=== PATIENT | male | born 1955 | race Caucasian/White ===

== ENCOUNTER 2018-11-25 16:19 | Observation (INO) ==
[2018-11-25 17:05] LABS: Basophils % 0.2 %; Hematocrit 39.8 % (37.5-50.1); Hemoglobin 13.8 g/dL (12.9-16.9); Immature Granulocytes % 0.7 % (0-4); Lymphocytes # 1.2 K/mcL (0.6-4.6); Lymphocytes % 9.5 %; Mean Corpuscular HGB Conc 34.7 g/dL (31.6-35.5); Mean Corpuscular Hemoglobin 32.9 pg (28.0-33.3); Monocytes # 0.6 K/mcL (0.0-1.3); Monocytes % 4.4 %; Platelet Count 246 K/mcL (140-400); Red Blood Count 4.19 M/mcL (4.19-5.50); Red Cell Distribution Width 12.4 % (11.5-14.5); Segmented Neutrophils % 85.2 %; White Blood Count 12.9 K/mcL (4.3-11.1)
[2018-11-25 17:12] LABS: INR 0.9; Prothrombin Time 10.4 Seconds (9.4-12.1)
[2018-11-25 17:15] LABS: Activated Partial Thrombo Time 30.4 Seconds (26.0-36.0)
[2018-11-25 17:27] LABS: BUN/Creatinine Ratio 29 (6-26); Blood Urea Nitrogen 27 mg/dL (8-23); Calcium 9.5 mg/dL (8.6-10.3); Carbon Dioxide 25 mEq/L (23-29); Chloride 103 mEq/L (98-107); Glucose 296 mg/dL (70-105); Osmolality,Calculated 300 (280-300); Potassium 4.2 mEq/L (3.5-5.1); Sodium 137 mEq/L (136-145); eGFR For African Americans > 60 (> 60); eGFR For Non-African Americans > 60 (> 60)
[2018-11-25 17:28] LABS: Troponin I < 0.03 ng/mL (< 0.04)
--- NOTE | 2018-11-25 17:51 | Emergency Department Note ---
Disposition Clinical Impression: Chest pain Disposition: Admitted As Inpatient Condition: Fair Referrals: Deepa Pastrana MD [Primary Care Provider] - Forms: ED Satisfaction Letter Time of Disposition: 18:19 Chest Pain HPI - General Chief Complaint: ED Chest Pain Stated Complaint: Chest Pain Time Seen by Provider: 11/25/18 16:37 Source: patient Vital Signs Reviewed: Yes Nursing Notes Reviewed: Yes - History of Present Illness HPI Narrative: Patient is a 63-year-old male with history of coronary artery disease with one stent placed in 1999 who presents with concerns of chest pain and shortness of breath. Patient states that these symptoms have been going on over the past 2 weeks. He said initially the chest pain which he describes as midsternal, sharp and stabbing in nature without radiation, would come on with ambulation and exertion and then resolve at rest. However, he states over the past 2 days it has now begun while at rest. He denies any associated fevers or chills, shortness of breath, nausea, vomiting, diaphoresis or other systemic symptoms. Severity scale (1-10): 2 - Related Data Home Medications Medication Instructions Recorded Confirmed Allopurinol [Zyloprim 100 MG] 100 mg PO DAILY PRN 12/09/16 12/09/16 Alogliptin Benzoate [Alogliptin] 2 tab PO DAILY 12/09/16 12/09/16 Aspirin [Lo-Dose Aspirin EC] 81 mg PO DAILY 12/09/16 12/09/16 Atenolol [Tenormin] 50 mg PO DAILY 12/09/16 12/09/16 Famotidine [Pepcid] 20 mg PO DAILY PRN 12/09/16 12/09/16 Hydroxychloroquine [Plaquenuil] 200 mg PO DAILY 12/09/16 12/09/16 Ibuprofen [Motrin] 800 mg PO Q8HR PRN 12/09/16 12/09/16 Lisinopril-HCTZ 20-12.5 [Prinzide 1 tab PO BID 12/09/16 12/09/16 20-12.5] Metformin HCl [Glucophage] 1,000 mg PO BID 12/09/16 12/09/16 Multivitamin [Multivitamins] 1 each PO DAILY 12/09/16 12/09/16 PredniSONE [Deltasone] 20 mg PO DAILY PRN 12/09/16 12/09/16 Previous Rx's Medication Instructions Recorded Isosorbide MONOnitrate (24 HR) 30 mg PO DAILY #30 tab.er.24h 12/09/16 [Imdur] Cyclobenzaprine [Flexeril] 10 mg PO HS #15 tablet 08/25/17 Allergies Allergy/AdvReac Type Severity Reaction Status Date / Time No Known Allergies Allergy Verified 06/17/16 09:30 Review of Systems: REVIEW OF SYSTEMS: Constitutional: No F/C, No excessive fatigue Eye: No acute visual changes HENT: No sore throat, No rhinorrhea Resp: No SOB, No cough Cardio: Admits to chest pain, No palpitations GI: No abdominal pain, No nausea, No vomiting, No constipation, No diarrhea, No melena or hematochezia : No dysuria, No hematuria Musculoskeletal: No new joint swelling, No back pain Neuro: No isolated numbness or weakness, No headaches Skin: No skin yellowing/jaundice, No pruritus Chest Pain PMH - Past Medical History Medical history: Reports: arthritis, diabetes, hyperlipidemia, hypertension, other Surgical history: Reports: angioplasty/stent, other Psychiatric history: Reports: no psych history - Social History Smoking Status: Current every day smoker Alcohol use: Reports: none Drug use: Reports: none Physical Exam PHYSICAL EXAM: Constitutional: Stated Age HENT: NC/AT, Mucous membranes moist Eyes: No scleral icterus, No photophobia, EOMI Neck: No nuchal rigidity, Supple, Trachea midline Cardiac: Regular rate and rhythm, S1 and S2 normal, no S3, S4, no murmurs gallops or rubs Thorax & Lungs: Clear to auscultation bilaterally, no wheezes, crackles or rhonchi, No chest tenderness Abdomen: Soft, non-tender, non-distended, no rebound or guarding Skin: Warm, dry, pink, No mottling Extremities: No deformities Musculoskeletal: Normal tone Neurologic: sensory and motor strength fully intact in all extremities, no aphasia or dysarthria Psychiatric: appropriately oriented for baseline - General General appearance: alert, in distress, obese Course Vital Signs Temperature 98.6 F 11/25/18 16:31 Pulse Rate 103 11/25/18 16:31 Respiratory Rate 20 11/25/18 16:31 Blood Pressure 164/79 11/25/18 16:31 O2 Sat by Pulse Oximetry 95 09/11/19 16:31 Temperature 98.6 F 11/25/18 16:31 Pulse Rate 103 11/25/18 16:31 Respiratory Rate 20 11/25/18 16:31 Blood Pressure 164/79 11/25/18 16:31 O2 Sat by Pulse Oximetry 95 11/25/18 16:31 Oxygen Delivery Oxygen Delivery Room Air Chest Pain - MDM Narrative Medical decision making narrative: Patient is a 63-year-old male with known coronary artery disease who presents with concerns of increasing chest pain over the past 2 weeks, primarily with past 2 days. He describes symptoms consistent with unstable angina. On exam, he was resting currently in no acute distress. Heart sounds regular lung sounds clear bilaterally. He is afebrile. Work up that is performed today, including chest x-ray, EKG as well as remaining labs are all felt to be fairly unremarkable. However, due to the patient's known coronary artery disease along with symptoms concerning for unstable angina, and if he wants hospitalization. He did have aspirin prior to arrival. The hospitalist was contacted regarding hospitalization. - Medical Records Medical records reviewed: Yes I reviewed the patient's medical records. - Lab Data Lab results reviewed: Yes I reviewed the patient's lab results. Result diagrams: 11/25/18 16:45 11/25/18 16:45 Lab Results 11/25/18 11/25/18 11/25/18 Range/Units 16:45 16:45 16:45 WBC 12.9 H (4.3-11.1) K/mcL RBC 4.19 (4.19-5.50) M/mcL Hgb 13.8 (12.9-16.9) g/dL Hct 39.8 (37.5-50.1) % MCV 95.0 (83.0-100.0) fL MCH 32.9 (28.0-33.3) pg MCHC 34.7 (31.6-35.5) g/dL RDW 12.4 (11.5-14.5) % Plt Count 246 (140-400) K/mcL MPV 10.0 (9.4-12.4) fL Immature Gran % 0.7 (0-4) % Seg Neutrophils % 85.2 % Lymphocytes % 9.5 % Monocytes % 4.4 % Eosinophils % 0.0 % Basophils % 0.2 % Neutrophils # 11.0 H (1.6-8.9) K/mcL Lymphocytes # 1.2 (0.6-4.6) K/mcL Monocytes # 0.6 (0.0-1.3) K/mcL Eosinophils # 0.0 (0.0-0.6) K/mcL Basophils # 0.0 (0.0-0.2) K/mcL PT 10.4 (9.4-12.1) Seconds INR 0.9 APTT 30.4 (26.0-36.0) Seconds Sodium (136-145) mEq/L Potassium (3.5-5.1) mEq/L Chloride (98-107) mEq/L Carbon Dioxide (23-29) mEq/L BUN (8-23) mg/dL Creatinine (0.70-1.30) mg/dL Est GFR ( Amer) (> 60) Est GFR (Non-Af Amer) (> 60) BUN/Creatinine Ratio (6-26) Glucose (70-105) mg/dL Calculated Osmolality (280-300) Calcium (8.6-10.3) mg/dL Troponin I (< 0.04) ng/mL B-Natriuretic Peptide 43 (Less than 100) pg/mL 11/25/18 Range/Units 16:45 WBC (4.3-11.1) K/mcL RBC (4.19-5.50) M/mcL Hgb (12.9-16.9) g/dL Hct (37.5-50.1) % MCV (83.0-100.0) fL MCH (28.0-33.3) pg MCHC (31.6-35.5) g/dL RDW (11.5-14.5) % Plt Count (140-400) K/mcL MPV (9.4-12.4) fL Immature Gran % (0-4) % Seg Neutrophils % % Lymphocytes % % Monocytes % % Eosinophils % % Basophils % % Neutrophils # (1.6-8.9) K/mcL Lymphocytes # (0.6-4.6) K/mcL Monocytes # (0.0-1.3) K/mcL Eosinophils # (0.0-0.6) K/mcL Basophils # (0.0-0.2) K/mcL PT (9.4-12.1) Seconds INR APTT (26.0-36.0) Seconds Sodium 137 (136-145) mEq/L Potassium 4.2 (3.5-5.1) mEq/L Chloride 103 (98-107) mEq/L Carbon Dioxide 25 (23-29) mEq/L BUN 27 H (8-23) mg/dL Creatinine 0.94 (0.70-1.30) mg/dL Est GFR ( Amer) > 60 (> 60) Est GFR (Non-Af Amer) > 60 (> 60) BUN/Creatinine Ratio 29 H (6-26) Glucose 296 H (70-105) mg/dL Calculated Osmolality 300 (280-300) Calcium 9.5 (8.6-10.3) mg/dL Troponin I < 0.03 (< 0.04) ng/mL B-Natriuretic Peptide (Less than 100) pg/mL - Radiology Data Radiology results reviewed: Yes I reviewed the patient's radiology results. - EKG Data EKG attestation: Yes I reviewed and interpreted this EKG. EKG shows normal: sinus rhythm Rate: normal Rhythm: NSR [place]/QRS: normal
[2018-11-25] MEDS ORDERED: Naloxone 0.4 MG/ML INJ IVP PRN (18:24)
[2018-11-25] MEDS ORDERED: Ondansetron 4 MG/2 ML VIAL IVP PRN (18:24)
--- NOTE | 2018-11-25 18:29 | Internal Med History&Physical ---
Date of Encounter: 11/25/18 Time of Encounter: 18:27 Internal Medicine - H&P: HPI Chief complaint: Chest pain Admitted From: Home Plans for Post Hospital Care: Home History of present illness: Mr. Mendoza is a 63 year old male with past medical history of CAD status post stent placed in 1999, CHF diastolic, hypertension, hyperlipidemia, GERD, and morbid obesity presents to the emergency room with complaint of chest pain for last 2 weeks. Patient reports his pain is substernal, episodic, 8/10 in severity at occurance, pressure like in quality radiates to right side of sternum, aggravated by exertion and relieved by rest. The patient also reports associated diaphoresis, sweating and SOB. Patient reports that all this started 2 months ago when his medication was switched from atenolol to metoprolol by his graphic manager Dr. Seo. Patient reports last 2 weeks frequency of his symptoms has worsened. However, in the last 2 days he started having symptoms at rest. Apart from this, he denies fever, chills, nausea and vomiting. Initial workup in the emergency department was unremarkable of any ischemia in EKG and troponine was negative. BNP was 42. CXR negative for any acute cardiopulmonary process. Reports that he has appointment with his graphic manager Dr. Seo coming Friday. Patient had echocardiogram on 11/11/18 showed ejection fraction 55-60%.. Mild concentric LVH and Mild diastolic dysfunction. Past Med Surg Social Fam HX - Past Medical History Medical history: arthritis, diabetes, hyperlipidemia, hypertension, other Additional medical history: gout. PCI x1 in 2000 Psychiatric history: no psych history - Past Surgical History Surgical History: angioplasty/stent, other Additional surgical history: heart stents. BILAT HERNIA. RIGHT SHOULDER - Social History Smoking Status: Current every day smoker Smokeless Tobacco Status: No Alcohol use: none Drug use: none - Family History Mother Hx Family Endocrine Disorder: Yes (DM) Brother Hx Family Endocrine Disorder: Yes (DM) Internal Medicine - H&P: Meds Allopurinol [Zyloprim 100 MG] 100 mg PO DAILY PRN 12/09/16 [History] Alogliptin Benzoate [Alogliptin] 2 tab PO DAILY 12/09/16 [History] Aspirin [Lo-Dose Aspirin EC] 81 mg PO DAILY 12/09/16 [History] Atenolol [Tenormin] 50 mg PO DAILY 12/09/16 [History] Famotidine [Pepcid] 20 mg PO DAILY PRN 12/09/16 [History] Hydroxychloroquine [Plaquenuil] 200 mg PO DAILY 12/09/16 [History] Ibuprofen [Motrin] 800 mg PO Q8HR PRN 12/09/16 [History] Isosorbide MONOnitrate (24 HR) [Imdur] 30 mg PO DAILY #30 tab.er.24h 12/09/16 [Rx] Lisinopril-HCTZ 20-12.5 [Prinzide 20-12.5] 1 tab PO BID 12/09/16 [History] Metformin HCl [Glucophage] 1,000 mg PO BID 12/09/16 [History] Multivitamin [Multivitamins] 1 each PO DAILY 12/09/16 [History] PredniSONE [Deltasone] 20 mg PO DAILY PRN 12/09/16 [History] Cyclobenzaprine [Flexeril] 10 mg PO HS #15 tablet 08/25/17 [Rx] Allergy/AdvReac Type Severity Reaction Status Date / Time No Known Allergies Allergy Verified 06/17/16 09:30 All Systems PM: A 10-system review of systems was performed and is negative for pertinent findings except as documented above in the HPI. - Constitutional Vitals: Temp Pulse Resp BP Pulse Ox 98.6 F 103 20 164/79 95 11/25/18 16:31 11/25/18 16:31 11/25/18 16:31 11/25/18 16:31 11/25/18 16:31 General appearance: Present: cooperative, A&O X 3 Exam: General: A & O 3, In no acute distress HENNT: PERRLA. Head atraumatic and makes supple Eyes: No scleral icterus noted CVS S1 and S2 regular, no murmur RS: Clear to air entry bilaterally, no wheeze, no crackles Abdomen: Soft and nontender. Bowel sounds normal 4 Extremities: Trace to 1+ pitting edema bilaterally Neurology: Cranial II-XII normal. Motor strength 5/5 bilaterally. Sensation intact Skin: No rash noted Psychiatr: Alert and oriented X 3. Normal mmod with congruent affect Internal Med - H&P Results - Labs CBC & Chem 7: 11/25/18 16:45 11/25/18 16:45 Labs: Short CBC 11/25/18 Range/Units 16:45 WBC 12.9 H (4.3-11.1) K/mcL Hgb 13.8 (12.9-16.9) g/dL Hct 39.8 (37.5-50.1) % Plt Count 246 (140-400) K/mcL Neutrophils # 11.0 H (1.6-8.9) K/mcL BMP 11/25/18 16:45 Sodium 137 Potassium 4.2 Chloride 103 Carbon Dioxide 25 BUN 27 H Creatinine 0.94 Glucose 296 H Calcium 9.5 Cardiac Enzymes 11/25/18 Range/Units 16:45 Troponin I < 0.03 (< 0.04) ng/mL - Impressions ITS Impressions Chest X-Ray 11/25/18 16:37 IMPRESSION: No acute cardiopulmonary disease or significant interval change from prior study 06/02/2012. D/ / Arsenio Velazquez / Arsenio Velazquez Interpreting Provider: Arsenio Velazquez - Assessment and Plan (1) Unstable angina pectoris due to coronary arteriosclerosis Current Visit: Yes Status: Acute Assessment and plan: The patient presents with complaint of 2 weeks off episode of chest pain on exertion. Patient's pain is substernal, pressure-like, and releived by rest. Teaching the emergency room showed sinus tachycardia at 106 which went up. EKG was negative for any ischemic changes. Trop X1 was negative. BNP 42. CXR was negative. Will admit patient for unstable angina. - Telemetry - Cardiac diet - NPO after midnight - Lipid panel in AM - Echocardiogram - Heparin gtt - Morphine for pain control - NTG 0.4 mg SL PRN - Trend troponine - Cardiology on consult (2) DM2 (diabetes mellitus, type 2) Current Visit: Yes Status: Chronic Assessment and plan: We will start patient on sliding scale corrective insulin regimen at low-dose. Qualifiers: Diabetes mellitus salvage determiner insulin use: without nursing home use Diabetes mellitus complication status: without complication Qualified Code(s): E11.9 - Type 2 diabetes mellitus without complications (3) CHF (congestive heart failure) Current Visit: Yes Status: Chronic Assessment and plan: We will continue aspirin, , statin and home medication. Pt is not currently volume overloaded. Qualifiers: Heart failure type: diastolic Heart failure chronicity: chronic Qualified Code(s): I50.32 - Chronic diastolic (congestive) heart failure (4) HTN (hypertension) Current Visit: Yes Status: Acute Assessment and plan: Continue lisinopril and hydrochlorothiazide. Will hold Metoprolol Qualifiers: Hypertension type: essential hypertension Qualified Code(s): I10 - Essential (primary) hypertension (5) HLD (hyperlipidemia) Current Visit: Yes Status: Acute Assessment and plan: Statin Qualifiers: Hyperlipidemia type: unspecified Qualified Code(s): E78.5 - Hyperlipidemia, unspecified (6) DVT prophylaxis Current Visit: Yes Status: Acute Assessment and plan: Heparin drip - Time Spent With Patient Total time spent is greater than 50% in coordination of care (as documented) at patient's floor/unit and/or counseling patient: 25 - 35 minutes
[2018-11-25] MEDS ORDERED: *HR* Heparin 5,000 UNIT/ML VIAL IVP PRN (18:48)
[2018-11-25] MEDS ORDERED: *HR* Heparin 5,000 UNIT/ML VIAL IVP ONE (18:48)
[2018-11-25] MEDS ORDERED: Morphine Sulfate 2 MG/ML SYRINGE IVP PRN (18:51)
[2018-11-25] MEDS ORDERED: Nitroglycerin 0.4 MG TAB.SUBL SL PRN (18:52)
[2018-11-25] MEDS ORDERED: Heparin 25,000 UNIT/250 ML D5W 25,000 UNIT/250 ML IV.SOLN IVC SCH (19:00)
[2018-11-25] MEDS: Lisinopril-HCTZ 20-12.5mg TABLET PO SCH (20:43)
[2018-11-25] MEDS: Famotidine 20 MG TABLET PO SCH (20:43)
[2018-11-25] MEDS ORDERED: *HR* Dextrose 50 % in Water (Syg) 50 ML SYRINGE IVP PRN (21:25)
[2018-11-25] MEDS ORDERED: Dextrose Gel 15 GM/37.5 ML TUBE PO PRN ×2 (21:25)
[2018-11-25] MEDS ORDERED: D5% in Water 1,000 ML IVC PRN (21:25)
[2018-11-25 22:01] LABS: Hematocrit 41.4 % (37.5-50.1); Hemoglobin 14.1 g/dL (12.9-16.9); Mean Corpuscular HGB Conc 34.1 g/dL (31.6-35.5); Mean Corpuscular Hemoglobin 32.6 pg (28.0-33.3); Mean Corpuscular Volume 95.6 fL (83.0-100.0); Platelet Count 266 K/mcL (140-400); Red Blood Count 4.33 M/mcL (4.19-5.50); Red Cell Distribution Width 12.3 % (11.5-14.5); White Blood Count 14.1 K/mcL (4.3-11.1)
[2018-11-25] MEDS: Insulin LISPRO 300 UNITS/3 ML VIAL SQ SCH (22:01)
[2018-11-25 22:08] LABS: Heparin anti-factor XA UFH 0.47 IU/mL (0.30-0.70)
[2018-11-25 22:09] LABS: Prothrombin Time 10.9 Seconds (9.4-12.1)
[2018-11-26 01:40] LABS: Basophils % 0.2 %; Eosinophils # 0.1 K/mcL (0.0-0.6); Eosinophils % 0.4 %; Hematocrit 39.4 % (37.5-50.1); Hemoglobin 13.4 g/dL (12.9-16.9); Immature Granulocytes % 0.5 % (0-4); Lymphocytes # 3.3 K/mcL (0.6-4.6); Mean Corpuscular Hemoglobin 32.5 pg (28.0-33.3); Mean Corpuscular Volume 95.6 fL (83.0-100.0); Mean Platelet Volume 10.3 fL (9.4-12.4); Monocytes % 7.6 %; Neutrophils # 8.8 K/mcL (1.6-8.9); Platelet Count 245 K/mcL (140-400); Red Blood Count 4.12 M/mcL (4.19-5.50); Red Cell Distribution Width 12.3 % (11.5-14.5); Segmented Neutrophils % 66.3 %; White Blood Count 13.3 K/mcL (4.3-11.1)
[2018-11-26 01:59] LABS: BUN/Creatinine Ratio 27 (6-26); Blood Urea Nitrogen 24 mg/dL (8-23); Calcium 9.4 mg/dL (8.6-10.3); Carbon Dioxide 27 mEq/L (23-29); Chloride 104 mEq/L (98-107); Chol/HDL Ratio 2.6 (0-4.9); Cholesterol 99 mg/dL (< 200); Glucose 180 mg/dL (70-105); HDL Cholesterol 38 mg/dL (40-59); LDL Cholesterol,Calculated 31 mg/dL (0-99); Magnesium 1.5 mg/dL (1.6-2.6); Osmolality,Calculated 299 (280-300); Phosphorous 3.6 mg/dL (2.7-4.5); Potassium 3.8 mEq/L (3.5-5.1); Sodium 140 mEq/L (136-145); Triglycerides 150 mg/dL (< 150); eGFR For African Americans > 60 (> 60); eGFR For Non-African Americans > 60 (> 60)
[2018-11-26] MEDS: *HR* Heparin 5,000 UNIT/ML VIAL IVP PRN ×2 (03:23→09:55)
[2018-11-26] MEDS ORDERED: Aspirin 81 MG TAB.CHEW PO SCH (09:00)
[2018-11-26] MEDS: Insulin LISPRO 300 UNITS/3 ML VIAL SQ SCH ×3 (09:18→17:40)
[2018-11-26] MEDS: Famotidine 20 MG TABLET PO SCH (11:31)
[2018-11-26] MEDS: Lisinopril-HCTZ 20-12.5mg TABLET PO SCH (11:31)
--- NOTE | 2018-11-26 11:43 | Cardiology Consult Note ---
<Mike Jerry R - Last Filed: 11/26/18 11:40> Date of Encounter: 11/26/18 Time of Encounter: 11:40 Assessment and Plan (1) Unstable angina pectoris due to coronary arteriosclerosis Current Visit: Yes Status: Acute Presented with worsening chest pain over recent months/weeks. Initial exertional, now occurring at rest, concerning for unstable angina. Troponin negative x 3. No ischemic ECG changes. On heparin gtt. [facility] 12/09/16: Unable to obtain RCA imaging via radial access, utilized ultrasound for right femoral access. There is moderate two vessel disease (LAD & Circumflex) with occluded nondominant RCA. The left ventricle is normal and has normal contractility EF 65%. FFR Measurement: 0.96 proximal LAD & 0.91 Mid Circumflex. TTE 10/2018 EF preserved. Started on Imdur as outpt in recent months, did not tolerate d/t headaches. Given symptoms and failed medical therapy, recommend [facility] to further evaluate. R/B/A discussed. Pt agrees to proceed. (2) CAD (coronary artery disease) Current Visit: Yes Status: Acute As above. Continue ASA, Statin, BB. Qualifiers: Coronary Disease-Associated Artery/Lesion type: [place] artery [place] vs. transplanted heart: [place] heart Associated angina: with unstable angina Qualified Code(s): I25.110 - Atherosclerotic heart disease of [place] coronary artery with unstable angina pectoris Discussion w patient/family: The assessment and plan as outlined above was discussed with the patient and/or family members who expressed understanding and agreement. All questions were answered. Thank you for involving us in the care of your patient. Please call with any questions. I will discuss all the above with Dr. Bush and make changes as necessary. History of Present Illness Consult date: 11/26/18 Consult reason: chest pain Chief complaint: chest pain History of present illness: Mr. Mendoza is a 63 year old male with PMH of CAD status post stent placed in 1999, CHF diastolic, hypertension, hyperlipidemia, GERD, and morbid obesity presents to the emergency room with complaint of chest pain for last 2 weeks. Patient reports his pain is substernal, episodic, 8/10 in severity at occurance, pressure like in quality radiates to right side of sternum, aggravated by ex ertion and relieved by rest. The patient also reports associated diaphoresis, sweating and SOB. Patient reports that all this started 2 months ago when his medication was switched from atenolol to metoprolol by his auto heater mechanic Dr. Seo. Patient reports last 2 weeks frequency of his symptoms has worsened. However, in the last 2 days he started having symptoms at rest. Apart from this, he denies fever, chills, nausea and vomiting. Troponin negative x 3. Cardiology consulted for further recs. Prior CV testing: [facility] 12/09/16: Unable to obtain RCA imaging via radial access, utilized ultrasound for right femoral access. There is moderate two vessel disease (LAD & Circumflex) with occluded nondominant RCA. The left ventricle is normal and has normal contractility EF 65%. FFR Measurement: 0.96 proximal LAD & 0.91 Mid Circumflex. TTE 11/11/18: LVEF 55-60%. Normal LV chamber size and function. Mild left ventricular diastolic dysfunction. Mild concentric left ventricular hypertrophy. Grossly, the right ventricle appears mildly dilated. Function is normal. Unable to estimate RVSP due to lack of TR jet. No obvious significant valvular dysfunction. Past Med Surg Social Fam HX - Past Medical History Medical history: arthritis, diabetes, hyperlipidemia, hypertension, other Additional medical history: gout. PCI x1 in 2000 Psychiatric history: no psych history - Past Surgical History Surgical History: angioplasty/stent, other Additional surgical history: heart stents. BILAT HERNIA. RIGHT SHOULDER - Social History Smoking Status: Current every day smoker Smokeless Tobacco Status: No Alcohol use: none Drug use: none - Family History Mother Hx Family Endocrine Disorder: Yes (DM) Brother Hx Family Endocrine Disorder: Yes (DM) Medications and Allergies Allopurinol [Zyloprim 100 MG] 100 mg PO BID PRN 12/09/16 [History] Alogliptin Benzoate [Alogliptin] 25 mg PO DAILY 12/09/16 [History] Aspirin [Lo-Dose Aspirin EC] 81 mg PO DAILY 12/09/16 [History] Famotidine [Pepcid] 20 mg PO DAILY PRN 12/09/16 [History] Ibuprofen [Motrin] 800 mg PO Q8HR PRN 12/09/16 [History] Lisinopril-HCTZ 20-12.5 [Prinzide 20-12.5] 1 tab PO BID 12/09/16 [History] Metformin HCl [Glucophage] 1,000 mg PO BID 12/09/16 [History] Multivitamin [Multivitamins] 1 each PO DAILY 12/09/16 [History] Atorvastatin [Lipitor] 80 mg PO HS 11/25/18 [History] Glimepiride [Amaryl] 2 mg PO DAILY 11/25/18 [History] predniSONE [PredniSONE] 40 mg PO DAILY MDD 10 11/25/18 [History] Allergy/AdvReac Type Severity Reaction Status Date / Time No Known Allergies Allergy Verified 06/17/16 09:30 All Systems Review: The remainder of the systems were reviewed and are negative - Cardiovascular Cardiovascular: as per HPI, chest pain at rest, chest pain with exertion, dyspnea on exertion Physical Examination Vital Signs Temp Pulse Resp BP Pulse Ox 11/26/18 07:35 97.5 F L 86 16 151/82 93 11/26/18 02:53 97.7 F 73 18 151/88 94 11/25/18 23:47 97.9 F 88 17 133/66 95 11/25/18 20:19 97.6 F 102 18 155/76 95 11/25/18 19:02 98 27 130/69 94 11/25/18 16:31 98.6 F 103 20 164/79 95 Intake and Output 11/25/18 11/26/18 11/26/18 23:59 07:59 15:59 Intake Total 50 / 50 60 / 150 90 / 150 Balance 50 / 50 60 / 150 90 / 150 Intake: IV Fluids 60 / 150 90 / 150 Heparin 25,000 UNIT/250 ML D5W 60 / 150 90 / 150 25,000 unit In 250 ml @ 7.33 UNIT/KG/HR 10.008 mls/hr IVC . Q24H HARLAN Rx#:[id number] Oral 50 / 50 Other: # Voids 1 Weight 136.248 kg 136.248 kg Blood Glucose* 194 163 Patient Weight 11/26/18 23:59 Weight 136.248 kg General: Conversant, No Apparent Distress HEENT: Atraumatic, Normocephaly, Mucus Membranes Moist Neck: No JVD, Normal carotid pulses Cardiac: Reg Rate and Rhythm, Normal S1 and S2, No Murmur Lungs: Normal Breath Sounds, No Wheeze, Rales, Rhonchi Neuro: Alert and responsive, No focal deficits noted Abdomen: Soft, Non-Tender Skin: No rashes noted on visualized skin Musculoskeletal: No Chest Wall Tenderness Extremities: No Clubbing, No Cyanosis, No Edema, Normal Pulses Results 11/26/18 00:33 11/26/18 00:33 Lab Results 11/25/18 11/25/18 11/25/18 16:45 16:45 16:45 WBC 12.9 H Hgb 13.8 Hct 39.8 Plt Count 246 INR 0.9 APTT 30.4 Sodium Potassium Chloride Carbon Dioxide BUN Creatinine Glucose Calcium Magnesium Troponin I B-Natriuretic Peptide 43 11/25/18 11/25/18 11/25/18 16:45 21:32 21:32 WBC 14.1 H Hgb 14.1 Hct 41.4 Plt Count 266 INR APTT Sodium 137 Potassium 4.2 Chloride 103 Carbon Dioxide 25 BUN 27 H Creatinine 0.94 Glucose 296 H Calcium 9.5 Magnesium Troponin I < 0.03 < 0.03 B-Natriuretic Peptide 11/25/18 11/26/18 11/26/18 21:32 00:33 00:33 WBC 13.3 H Hgb 13.4 Hct 39.4 Plt Count 245 INR 1.0 APTT Sodium Potassium Chloride Carbon Dioxide BUN Creatinine Glucose Calcium Magnesium Troponin I < 0.03 B-Natriuretic Peptide 11/26/18 11/26/18 00:33 06:34 WBC Hgb Hct Plt Count INR APTT Sodium 140 Potassium 3.8 Chloride 104 Carbon Dioxide 27 BUN 24 H Creatinine 0.88 Glucose 180 H Calcium 9.4 Magnesium 1.5 L Troponin I 0.03 B-Natriuretic Peptide Short CBC 11/26/18 11/25/18 11/25/18 Range/Units 00:33 21:32 16:45 WBC 13.3 H 14.1 H 12.9 H (4.3-11.1) K/mcL Hgb 13.4 14.1 13.8 (12.9-16.9) g/dL Hct 39.4 41.4 39.8 (37.5-50.1) % Plt Count 245 266 246 (140-400) K/mcL Neutrophils # 8.8 11.0 H (1.6-8.9) K/mcL BMP 11/26/18 11/25/18 Range/Units 00:33 16:45 Sodium 140 137 (136-145) mEq/L Potassium 3.8 4.2 (3.5-5.1) mEq/L Chloride 104 103 (98-107) mEq/L Carbon Dioxide 27 25 (23-29) mEq/L BUN 24 H 27 H (8-23) mg/dL Creatinine 0.88 0.94 (0.70-1.30) mg/dL Glucose 180 H 296 H (70-105) mg/dL Calcium 9.4 9.5 (8.6-10.3) mg/dL Cardiac Enzymes 11/26/18 11/26/18 11/25/18 Range/Units 06:34 00:33 21:32 Troponin I 0.03 < 0.03 < 0.03 (< 0.04) ng/mL 11/25/18 Range/Units 16:45 Troponin I < 0.03 (< 0.04) ng/mL Impressions Chest X-Ray 11/25/18 16:37 IMPRESSION: No acute cardiopulmonary disease or significant interval change from prior study 06/02/2012. D/ / Arsenio Velazquez / Arsenio Velazquez Interpreting Provider: Arsenio Velazquez Active Medications Allopurinol (Zyloprim) 100 mg PO DAILY [facility] Stop: 05/28/19 09:01 Last Admin: 11/26/18 11:31 Dose: 100 mg Documented by: Aspirin (Aspirin) 81 mg PO DAILY [facility] Stop: 05/28/19 09:01 Last Admin: 11/26/18 11:30 Dose: 81 mg Documented by: Atenolol (Tenormin) 50 mg PO DAILY [facility] Stop: 05/28/19 09:01 Last Admin: 11/26/18 11:31 Dose: 50 mg Documented by: Atorvastatin Calcium (Lipitor) 40 mg PO HS [facility] Stop: 05/27/19 21:01 Last Admin: 11/25/18 20:43 Dose: 40 mg Documented by: Dextrose/Water (Dextrose 50% (Syg)) 25 ml IVP AD PRN PRN Reason: Hypoglycemia Stop: 05/27/19 21:26 Famotidine (Pepcid) 20 mg PO BID [facility]; Protocol Stop: 05/27/19 21:01 Last Admin: 11/26/18 11:31 Dose: 20 mg Documented by: Glucagon (Glucagen) 1 mg IM ONCE PRN PRN Reason: Hypoglycemia Stop: 05/27/19 21:26 Glucose (Gluctose) 15 gm PO ONCE PRN PRN Reason: Hypoglycemia Stop: 05/27/19 21:26 Glucose (Gluctose) 30 gm PO ONCE PRN PRN Reason: Hypoglycemia Stop: 05/27/19 21:26 Lisinopril/HCTZ (Prinzide 20-12.5) 1 each PO DAILY [facility] Stop: 05/27/19 19:01 Last Admin: 11/26/18 11:31 Dose: 1 each Documented by: Heparin Sodium (Porcine) (Heparin) 4,000 unit IVP Q6HR PRN PRN Reason: SEE COMMENTS Stop: 05/27/19 18:49 Heparin Sodium (Porcine) (Heparin) 2,000 unit IVP Q6H PRN PRN Reason: SEE COMMENTS Stop: 05/27/19 18:49 Last Admin: 11/26/18 09:55 Dose: 2,000 unit Documented by: Heparin Sodium/Dextrose (Heparin 25,000 Unit/250 Ml D5w) 25,000 unit in 250 mls @ 10.008 mls/hr IVC .Q24H [facility]; Protocol Stop: 05/27/19 19:01 Last Titration: 11/26/18 11:32 Dose: Infused Documented by: Dextrose (Dextrose 5%) 1,000 mls @ 100 mls/hr IVC .Q10H PRN PRN Reason: HYPOGLYCEMIA Stop: 05/27/19 21:26 Insulin Human Lispro (Humalog) 0 units SQ TIDAC [facility]; Protocol Stop: 05/27/19 21:31 Last Admin: 11/26/18 09:18 Dose: Not Given Documented by: Morphine Sulfate (Morphine) 2 mg IVP Q4HR PRN; Protocol PRN Reason: Chest pain Stop: 05/27/19 18:52 Naloxone HCl (Narcan) 0.4 mg IVP Q2MPRN PRN PRN Reason: SEE COMMENTS Stop: 05/27/19 18:25 Nitroglycerin (Nitroglycerin) 0.4 mg SL Q5MPRN PRN PRN Reason: Chest Pain Stop: 05/27/19 18:53 Ondansetron HCl (Zofran) 4 mg IVP Q8HR PRN PRN Reason: Nausea And Vomiting Stop: 03/12/20 18:25 - Imaging and Cardiology Echo: report reviewed Cardiac cath: report reviewed Consult Discharge Plan - Plan Referrals: Deepa Pastrana MD [Primary Care Provider] - HAS-BLED Score - Score Medication usage predisposing to bleeding: Antiplatelet agents, NSAIDs, Anticoagulants Score: 1 <Virginie Bush - Last Filed: 11/26/18 14:43> Date of Encounter: 11/26/18 - Attending Attestation I examined this patient and my medical decision-making was reviewed with the PACK OPERATOR. I agree with the documented findings, disposition and treatment plan as described. Assessment and Plan Discussion w patient/family: The assessment and plan as outlined above was discussed with the patient and/or family members who expressed understanding and agreement. All questions were answered. Thank you for involving us in the care of your patient. Please call with any questions. History of Present Illness History of present illness: Mr. Mendoza is a 63 year old male All Systems Review: The remainder of the systems were reviewed and are negative Physical Examination Vital Signs, Last 4 Hours Temp Pulse Resp BP Pulse Ox 11/26/18 14:28 97.6 F 75 15 128/79 94 11/26/18 14:05 97.8 F 75 14 138/83 96 11/26/18 12:10 97.7 F 91 16 128/81 93 Results 11/26/18 00:33 11/26/18 00:33 Lab Results 11/25/18 11/25/18 11/25/18 16:45 16:45 16:45 WBC 12.9 H Hgb 13.8 Hct 39.8 Plt Count 246 INR 0.9 APTT 30.4 Sodium Potassium Chloride Carbon Dioxide BUN Creatinine Glucose Calcium Magnesium Troponin I B-Natriuretic Peptide 43 11/25/18 11/25/18 11/25/18 16:45 21:32 21:32 WBC 14.1 H Hgb 14.1 Hct 41.4 Plt Count 266 INR APTT Sodium 137 Potassium 4.2 Chloride 103 Carbon Dioxide 25 BUN 27 H Creatinine 0.94 Glucose 296 H Calcium 9.5 Magnesium Troponin I < 0.03 < 0.03 B-Natriuretic Peptide 11/25/18 11/26/18 11/26/18 21:32 00:33 00:33 WBC 13.3 H Hgb 13.4 Hct 39.4 Plt Count 245 INR 1.0 APTT Sodium Potassium Chloride Carbon Dioxide BUN Creatinine Glucose Calcium Magnesium Troponin I < 0.03 B-Natriuretic Peptide 11/26/18 11/26/18 00:33 06:34 WBC Hgb Hct Plt Count INR APTT Sodium 140 Potassium 3.8 Chloride 104 Carbon Dioxide 27 BUN 24 H Creatinine 0.88 Glucose 180 H Calcium 9.4 Magnesium 1.5 L Troponin I 0.03 B-Natriuretic Peptide
[2018-11-26] MEDS ORDERED: *HR* Midazolam HCl 2 MG/2 ML VIAL ONE (13:01)
[2018-11-26] MEDS ORDERED: 0.9 % Sodium Chloride 1,000 ML ONE ×2 (13:01→13:03)
[2018-11-26] MEDS ORDERED: Heparin 1,000 UNITS/500 mL 500 ML ONE (13:01)
[2018-11-26] MEDS ORDERED: Nitroglycerin 1,000 MCG/10 ML VIAL IV ONE (13:02)
[2018-11-26] MEDS ORDERED: *HR* Heparin 10,000 UNIT/10 ML VIAL ONE (13:02)
--- NOTE | 2018-11-26 13:06 | Pre-Sedation Evaluation ---
Pre-sedation evaluation - Pre-sedation checklist Date of procedure: 11/26/18 Procedure: [facility] Recent Vitals: Last Vital Signs Temp 97.7 F 11/26/18 12:10 Pulse 91 11/26/18 12:10 Resp 16 11/26/18 12:10 BP 128/81 11/26/18 12:10 Pulse Ox 93 11/26/18 12:10 H&P (including ROS) documented in medical record: Yes Previous reaction to sedatives/anesthetics: No Dietary Status: NPO after Midnight Airway Assessment: Patient can open mouth completely, TMJ function normal Dentition: No loose teeth or bridges Possible difficult airway: No ASA Classification *see protocol: CLASS II-Mild systemic disease Plan of Care: Pt appropriate candidate for procedure/moderate/conscious sedation Cardiac Registry (Cardio Only) - Functional Capacity Functional Capacity: >=4 METS with symptoms - Clincal Frailty Scale Clinical Frailty Scale: Well
[2018-11-26] MEDS ORDERED: *HR* FentaNYL (PF) 100 MCG/2 ML VIAL ONE (13:13)
[2018-11-26] MEDS ORDERED: Verapamil 5 MG/2 ML VIAL ONE (13:28)
[2018-11-26] MEDS ORDERED: Furosemide 40 MG/4 ML VIAL IVP ONE (13:51)
--- NOTE | 2018-11-26 14:01 | Event Note ---
Date of Encounter: 11/26/18 Time of Encounter: 14:00 - Cardiology Event Note LHC unchanged from previous, no intervention. Final report pending. Elevated diastolic pressure. Will give dose of IV Lasix 40mg once and start PO daily maintenance Lasix 20mg. Cardiology signing off. Reconsult PRN. Will coordinate outpt f/up. Would be okay to d/c home this afternoon from a cardiac standpoint once post cath orders are complete.
--- NOTE | 2018-11-26 14:02 | Invasive Diagnostic Lab Proc ---
Name: Gatito Mendoza Date of Study: 11/26/2018 Date: 1955 Ht: 64.2in Medical Record#: [id number] Age: 63 Wt: 299.83lb Gender: Male BSA: 2.33 Order #: [id number] BMI: 51.19 Physicians Procedure Physician: Memo Cunningham MD Referring MD: Referring MD: Staff Name Position Time In Laurie Bello RT (R) Monitor 01:45 PM Corrina Hobbs RT (R) Scrub 01:45 PM Efren Mejia RN Commercial Collector 01:45 PM Rosa Isela Prajapati RT (R) Scrub 01:46 PM Indications Indication Other-Unstable Angina Procedures Performed Procedure L HRT ARTERY/VENTRICLE ANGIO Pre-Procedure Checklist Pt not NPO for procedure and MD aware. Blood Pressure: 128/81 Plan of Care Patient will tolerate the procedure without complications. Adequate level of comfort will be maintained. Hemodynamics will remain stable Patient will recover from procedure without complications. Respiratory function will be maintained. Cardiac rhythm will remain stable. Patient temperature will be maintained. Patient and/or family have verbalized understanding of the procedure. Patient Education Chief Complaint/Reason for Test: Cardiac Cath Developmental Category: Adult (18-64 years) Developmentally Appropriate for Age: Yes Learning Barriers: None Education Needs: Procedure Education Method: Verbal Information Taught: Cardiac Cath Educational Evaluation: Able to repeat information Intravenous Access Time IV Size Location DC'd Fluid/Drip Rate Units RN 12:21 PM 20g 1 1/4" Patent On Arrival Lt Antecubital Allergies No Known Allergies Vital Signs Time BP (mmHg) HR (bpm) O2 Sat. RR (bpm) LOC 12:21 PM 128 / 81 91 93 % 16 5 = Fully awake and oriented or at pre-proc level 01:21 PM / % 5 = Fully awake and oriented or at pre-proc level 01:21 PM / % 4 = Oriented but drowsy 01:18 PM 138 / 84 77 96 % 13 01:23 PM 130 / 57 77 95 % 24 01:28 PM 107 / 46 76 95 % 19 01:33 PM 117 / 33 77 94 % 22 01:38 PM 106 / 43 74 94 % 15 01:43 PM 112 / 58 80 95 % 25 Procedural Medications Time Medication Dose Units Method Given By 01:21 PM Oxygen 2 L/min nasal cannula Alo, Rosa Isela RT (R) 01:21 PM Versed 2 mg Intravenous AndEfren bowers RN 01:29 PM Lidocaine 2% 1 ml Subcutaneous Memo Cunningham MD 01:30 PM Heparin 4000 units Nitroglycerin 0 mcg Verapamil 2.5 mg Intraarterial Memo Cunningham MD ASA Classification: CLASS II- Mild systemic disease (i.e. well-controlled diabetes, hypertension, asthma, cigarette smoking) Ivy Score Preprocedure Postprocedure Activity 2- Moves 4 extremities sustained head lift Activity 2- Moves 4 extremities sustained head lift Circulation 2- SBP +/= 20 points of pre-anesthetic level Circulation 2- SBP +/= 20 points of pre-anesthetic level Consciousness 2- Awake and alert oriented x 3 Consciousness 2- Awake and alert oriented x 3 O2 Saturation 2- Able to maintain O2 satruation of 92% on room air O2 Saturation 2- Able to maintain O2 satruation of 92% on room air Respiratory 2- Able to deep breathe and cough well Respiratory 2- Able to deep breathe and cough well Total Score 10 Total Score 10 Contrast Agent: Isovue Diagnostic Contrast: 75 ml Total Contrast: 75 ml Fluoro Dose: 32 mGy Procedure Log Time Note Enter By 01:16 PM CathStat 01:16 PM Vitals capture started with the following parameters, Patient=Adult, Interval=5 min, Initial Fqlxmhbs=156 mmHg, Deflation Rate=3 mmHg, Cuff placed on Right Arm 01:17 PM Recorded ECG: HR=77 Condition=Condition 1 01:18 PM HR=77 bpm, XOKZ=295/84 mmhg, SpO2=96.0 %, Resp=13 B/min 01:18 PM Recorded ECG: HR=77 Condition=Condition 1 01:19 PM Pt arrived to lab head 2 at 13:19 [facility] :19 PM Patient charges- Angio tray pack, Navilyst 3mm J, Pulse Oximetry and ACIST tubing and transducer :19 PM Physician arrived 13:19 [facility] :19 PM Meet and rossy completed [facility] :19 PM Sign in performed according to hospital policy. Informed consent was obtained. [facility] 01:20 PM ASA Class CLASS II- Mild systemic disease (i.e. well-controlled diabetes, hypertension, asthma, cigarette smoking) [facility] :20 PM Procedure start 13:20 :20 PM Hair removed from procedure site in holding area using clippers. Right wrist and Right groin prepped with Chloraprep by Rosa Isela Prajapati (R), then patient was draped. Skin intact. PM Time: 13:21 Patient comfortable and pain free: Yes PM Time: 13:21LOC: 5 = Fully awake and oriented or at pre-proc level PM Time: 13:21 Oxygen on at 2 L/min per nasal cannula by Rosa Isela Prajapati (R) Time: 13:21 Versed 2 mg Intravenous Given by Efren Mejia RN :23 PM HR=77 bpm, DECT=078/57 mmhg, SpO2=95.0 %, Resp=24 B/min 01:27 PM Time out was performed according to hospital policy. Conscious sedation and anesthesia was achieved (see medication log with in this report above) :28 PM HR=76 bpm, FUQN=014/46 mmhg, SpO2=95.0 %, Resp=19 B/min 01:30 PM Time: 13:29 1 ml Lidocaine 2% to right radial Subcutaneous Given by Memo Cunningham MD :30 PM Access obtained by percutaneous puncture. 5/6Fr 10cm Terumo Glidesheath sheath placed in right Radial artery. [id number] :30 PM Time: 13:30 Patient given 4,000 units Heparin, 0 mcg Nitroglycerin, and 2.5 mg Verapamil Intraarterial by Memo Cunningham MD. This is given to reduce risk of vessel spasm and thrombosis. :31 PM Pressure channel 2 zeroed. 01:32 PM 0.035 260cm Navilyst 3mmJ wire [id number] 01:32 PM 5Fr FL3.5 catheter inserted over the wire [id number] 01:33 PM HR=77 bpm, PTLI=351/33 mmhg, SpO2=94.0 %, Resp=22 B/min 01:34 PM Recorded Pressure: Ao, HR=77, Condition=Condition 1 (Aorta) Ao 102/79/89 01:36 PM Time: 13:21LOC: 4 = Oriented but drowsy :36 PM Time: 13:21 Patient comfortable and pain free: Yes :36 PM LCA angiography performed in multiple views. :36 PM Catheter removed :36 PM 5Fr FR 4 catheter inserted over the wire [facility] 01:38 PM HR=74 bpm, EFUG=924/43 mmhg, SpO2=94.0 %, Resp=15 B/min 01:39 PM RCA angiography performed in multiple views. 01:39 PM Catheter removed :40 PM 5Fr Pigtail catheter inserted over the wire [facility] 01:40 PM Catheter crossed the aortic valve and was selectively placed in the left ventricle. Pressures recorded on pullback for left heart catheterization. 01:40 PM Recorded Pressure: LV, HR=74, Condition=Condition 1 (Left Ventricle) LV 82/4/8 01:40 PM Recorded Pressure: LV, HR=80, Condition=Condition 1 (Left Ventricle) LV 132/31/57 01:41 PM Bolus angiogram of left Ventricle complete: hand injection :42 PM Catheter removed :42 PM Coronary Dominance: Co-dominant 01:42 PM Procedure completed at 13:42 11/26/2018:42 PM Did you address KIRILL flow and Dominance? YesCoronary Dominance: Co-dominant amil:43 PM HR=80 bpm, EASX=829/58 mmhg, SpO2=95.0 %, Resp=25 B/min 01:43 PM Sign out completed: Radiation Dose 404.42 mGy, 32.1 Gy/cm2 Fluoro Time: 2.2 Isovue 370 - 200ml contrast 75 ml given by Memo Cunningham MD. Complications: None. The patient was discharged out of the seed laboratory technician in stable condition. Sedation minutes 21. Cardiac Rehab Consult needed: No. Confirmed administered medications: Yes amil:43 PM Isovue 370 - 125ml,1 Bottle(s) used. amil 01:43 PM Arterial sheath pulled, Vasc Band closure device used and was Successful S/N. amil:43 PM 11 ml air in Vasc Band. amil:44 PM Estimated Blood Loss: minimal amil:44 PM Post ECG NSR amilton 01:44 PM Post Blood Pressure 112/58 [email or web address] 01:44 PM Information taught Cardiac Cath and Vasc Band amil 01:45 PM Education needs Procedure, Plan of Care, and Responsibilities of Patient in Care 01:45 PM Learning barriers :None 01:45 PM Education Methods Verbal 01:45 PM Education evaluation Able to repeat information 01:45 PM Site status No bleeding/ No Hematoma - Rt Wrist as reported by Corrina Hobbs RT (R) at 13:45 amil 01:45 PM Family placed in consult room. amil 01:45 PM Laurie Bello RT (R) Position: Monitor Time in: 13:45 amil 01:45 PM Corrina Hobbs RT (R) Position: Scrub Time in: 13:45 amil 01:45 PM Efren Mejia RN Position: Commercial Collector Time in: 13:45 01:46 PM Rosa Isela Prajapati RT (R) Position: Scrub Time in: 13:46 amil 01:48 PM Report given to Bhavya ROGERS Pt taken to 3B Room #66. 13:47 [email or web address] 01:48 PM Delay to floor No [email or web address] 01:48 PM Patient out of room: 13:48 [email or web address] 01:50 PM Lesion found in Proximal RCA. Pre Stenosis: 100 Pre KIRILL Flow: [email or web address] 01:50 PM Lesion found in Proximal LAD. Pre Stenosis: 20 Pre KIRILL Flow: [email or web address] 01:50 PM Lesion found in Mid LAD. Pre Stenosis: 60 Pre KIRILL Flow: [email or web address] 01:51 PM Lesion found in Distal LAD. Pre Stenosis: 20 Pre KIRILL Flow: [email or web address] 01:51 PM Lesion found in Proximal Circumflex. Pre Stenosis: 20 Pre KIRILL Flow: [email or web address] 01:51 PM Lesion found in Mid Circumflex. Pre Stenosis: 60 Pre KIRILL Flow: [email or web address] 01:51 PM Lesion found in Distal Circumflex. Pre Stenosis: 30 Pre KIRILL Flow: [email or web address] Complications Complication None Hemodynamics Pressures Site Systolic/A Wave Diastolic/V Wave Mean AO 102 79 89 LV 82 4 8 LV 132 31 57 Post Procedure Information Blood Pressure: 112/58 mmHg Rhythm: NSR Post procedural instructions were given Closure Device Time Device Success/Fail 11/26/2018 1:48:00 PM Mechanical Compression Successful Site Checks Time Location Status Staff Sheath In? Note 01:45 PM Rt Wrist No bleeding/ No Hematoma Corrina Hobbs RT (R) Pulses Time Site Pre-Procedure Post-Procedure Note 11/26/2018 12:21:00 PM Bilateral radial 2+ per inpatient nurse 11/26/2018 12:21:00 PM Bilateral DP 2+ per inpatient nurse Updated by RT Rosalba HuitronR) on 11/26/2018 1:53:58 PM electronically signed on 11/26/2018 1:55:38 PM with status of Final
--- NOTE | 2018-11-26 15:06 | Discharge Summary ---
- NOTES TO OUTPATIENT PROVIDER Notes to Outpatient Provider: Patient presented to the hospital yesterday with complaint of excess mild chest pain. Patient was admitted for unstable angina. Patient has history of PCI with stent in year 1999. 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 Patient was IV heparin drip. Patient's troponin 3 was negative. Cartilage consult placed. Pt had LHC done with no interval changes between 2017 and today's LHC. Pt had no intervention done. Pt was discharged on Lasix 20 daily for high diastolic pressure and also on potassium supplement. Pt to follow up with his interventional sale consultant, Dr. Seo and PCP in one week. Estimated PT Needs at Discharge: None Date of Encounter: 11/26/18 Time of Encounter: 15:02 - Discharge Diagnosis (1) Unstable angina pectoris due to coronary arteriosclerosis Priority: Primary Status: Acute (2) DM2 (diabetes mellitus, type 2) Priority: Secondary Status: Chronic Qualifiers: Diabetes mellitus alf insulin use: without alf use Diabetes mellitus complication status: without complication Qualified Code(s): E11.9 - Type 2 diabetes mellitus without complications (3) CHF (congestive heart failure) Priority: Secondary Status: Chronic Qualifiers: Heart failure type: diastolic Heart failure chronicity: chronic Qualified Code(s): I50.32 - Chronic diastolic (congestive) heart failure (4) HTN (hypertension) Priority: Secondary Status: Acute Qualifiers: Hypertension type: essential hypertension Qualified Code(s): I10 - Essential (primary) hypertension (5) HLD (hyperlipidemia) Priority: Secondary Status: Acute Qualifiers: Hyperlipidemia type: unspecified Qualified Code(s): E78.5 - Hyperlipidemia, unspecified (6) DVT prophylaxis Priority: Secondary Status: Acute Hospital course: Mr. Mendoza is a 63 year old male presented to the hospital yesterday with complaint of excess mild chest pain. Patient was admitted for unstable angina. Patient has history of PCI with stent in year 1999. 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 Patient was IV heparin drip. Patient's troponin 3 was negative. Cartilage consult placed. Pt had LHC done with no interval changes between 2017 and today's LHC. Pt had no intervention done. Pt was discharged on Lasix 20 daily for high diastolic pressure and also on potassium supplement. Pt to follow up with his interventional sale consultant, Dr. Seo and PCP in one week. Discharge discussed with: patient, family, nurse, internet marketing consultant - Time Spent with Patient Total time spent providing and/or coordinating discharge services: 35 Time spent: Greater than 30 minutes - Discharge Medications Prescriptions: New Furosemide [Lasix] 20 mg PO DAILY 7 Days #7 tablet Potassium Chloride 20 meq PO DAILY 7 Days #7 tab.er.prt Continued Allopurinol [Zyloprim 100 MG] 100 mg PO BID PRN PRN Reason: Inflammation Alogliptin Benzoate [Alogliptin] 25 mg PO DAILY Famotidine [Pepcid] 20 mg PO DAILY PRN PRN Reason: Indigestion Multivitamin [Multivitamins] 1 each PO DAILY Lisinopril-HCTZ 20-12.5 [Prinzide 20-12.5] 1 tab PO BID Aspirin [Lo-Dose Aspirin EC] 81 mg PO DAILY Metformin HCl [Glucophage] 1,000 mg PO BID Atorvastatin [Lipitor] 80 mg PO HS Glimepiride [Amaryl] 2 mg PO DAILY predniSONE [PredniSONE] 40 mg PO DAILY MDD 10 Discontinued Ibuprofen [Motrin] 800 mg PO Q8HR PRN PRN Reason: Pain Home Medications: Allopurinol [Zyloprim 100 MG] 100 mg PO BID PRN 12/09/16 [History] Alogliptin Benzoate [Alogliptin] 25 mg PO DAILY 12/09/16 [History] Aspirin [Lo-Dose Aspirin EC] 81 mg PO DAILY 12/09/16 [History] Famotidine [Pepcid] 20 mg PO DAILY PRN 12/09/16 [History] Lisinopril-HCTZ 20-12.5 [Prinzide 20-12.5] 1 tab PO BID 12/09/16 [History] Metformin HCl [Glucophage] 1,000 mg PO BID 12/09/16 [History] Multivitamin [Multivitamins] 1 each PO DAILY 12/09/16 [History] Atorvastatin [Lipitor] 80 mg PO HS 11/25/18 [History] Glimepiride [Amaryl] 2 mg PO DAILY 11/25/18 [History] predniSONE [PredniSONE] 40 mg PO DAILY MDD 10 11/25/18 [History] Furosemide [Lasix] 20 mg PO DAILY 7 Days #7 tablet 11/26/18 [Rx] Potassium Chloride 20 meq PO DAILY 7 Days #7 tab.er.prt 11/26/18 [Rx] Allergies/Adverse Reactions: Allergy/AdvReac Type Severity Reaction Status Date / Time No Known Allergies Allergy Verified 06/17/16 09:30 Date of admission: 11/25/18 18:17 Primary care physician: Deepa Pastrana Consults: 11/25/18 18:52 Consult to Cardiology [CONS] Stat Comment: Consulting Provider: Cardiology Karen Reason for Consult: cheat pain Call Completed: Yes Discharging clinician: Octavio Montero - Constitutional Vitals: Temp Pulse Resp BP Pulse Ox 98 F 75 15 150/91 95 11/26/18 14:47 11/26/18 14:47 11/26/18 14:47 11/26/18 14:47 11/26/18 14:47 General appearance: Present: cooperative, A&O X 3 Exam: General: A & O 3, In no acute distress HENNT: PERRLA. Head atraumatic and makes supple Eyes: No scleral icterus noted CVS S1 and S2 regular, no murmur RS: Clear to air entry bilaterally, no wheeze, no crackles Abdomen: Soft and nontender. Bowel sounds normal 4 Extremities: Trace to 1+ pitting edema bilaterally Neurology: Cranial II-XII normal. Motor strength 5/5 bilaterally. Sensation intact Skin: No rash noted Psychiatr: Alert and oriented X 3. Normal mmod with congruent affect - Patient Status Disposition: Home, Self-Care Condition: Good Overall status at discharge: patient is progressing back to baseline - Discharge Instructions Follow Up With: Deepa Pastrana MD [Primary Care Provider] - - Diet and Activity Activity: increase activity as tolerated Diet: diabetic diet, low salt diet
[2018-11-26] MEDS ORDERED: Acetaminophen 325 MG TABLET PO ONE (15:46)
[2018-11-26 15:57] VITALS: BP 117/71
--- NOTE | 2018-11-26 17:42 | Electrocardiograph Report ---
[address] [address] Test Date: 2018-11-25 Pat Name: Gatito Mendoza Department: [id number] Room: 3B Gender: M Test Baker: : 1955 Requested By: [id number] Order Number: [id number] Reading MD: Virginie Bush Measurements Intervals [place] Rate: 106 P: 45 HI: 185 QRS: 61 QRSD: 96 T: 58 QT: 340 QTc: 452 Interpretive Statements Sinus tachycardia Electronically Signed On 11-26-2018 17:41:13 EDT by Virginie Bush
[2018-11-26] MEDS ORDERED: *HR* Heparin 5,000 UNIT/ML VIAL SQ SCH (18:00)
[2018-11-27] MEDS ORDERED: Furosemide 20 MG TABLET PO SCH (09:00)
== END 2018-11-26 18:27 | disposition home or self-care (01) ==
LOC: EMEROOARM 16:19 → 3BNU 16:19 → SUATTDRO 18:17 → 3BNU 20:00
PROVIDERS: ADMIT Internal Medicine; ATTEND Family Medicine

== ENCOUNTER 2019-11-26 07:58 | Observation (INO) ==
[2019-11-26 08:43] LABS: Basophils # 0.1 K/mcL (0.0-0.2); Basophils % 0.6 %; Eosinophils # 0.1 K/mcL (0.0-0.6); Eosinophils % 1.1 %; Hematocrit 41.9 % (37.5-50.1); Hemoglobin 14.4 g/dL (12.9-16.9); Immature Granulocytes % 0.3 % (0-4); Lymphocytes % 22.3 %; Mean Corpuscular HGB Conc 34.4 g/dL (31.6-35.5); Mean Corpuscular Hemoglobin 33.1 pg (28.0-33.3); Mean Corpuscular Volume 96.3 fL (83.0-100.0); Mean Platelet Volume 9.8 fL (9.4-12.4); Monocytes # 0.7 K/mcL (0.0-1.3); Monocytes % 7.3 %; Neutrophils # 6.1 K/mcL (1.6-8.9); Platelet Count 268 K/mcL (140-400); Red Blood Count 4.35 M/mcL (4.19-5.50); Red Cell Distribution Width 12.4 % (11.5-14.5); Segmented Neutrophils % 68.4 %; White Blood Count 8.9 K/mcL (4.3-11.1)
[2019-11-26 09:02] LABS: BUN/Creatinine Ratio 31 (6-26); Blood Urea Nitrogen 27 mg/dL (8-23); Calcium 9.9 mg/dL (8.6-10.3); Carbon Dioxide 22 mEq/L (23-29); Chloride 104 mEq/L (98-107); Glucose 147 mg/dL (70-105); Osmolality,Calculated 294 (280-300); Potassium 4.3 mEq/L (3.5-5.1); Sodium 138 mEq/L (136-145); eGFR For African Americans > 60 (> 60); eGFR For Non-African Americans > 60 (> 60)
[2019-11-26 09:03] LABS: Troponin I < 0.03 ng/mL (< 0.04)
[2019-11-26] MEDS ORDERED: Naloxone 0.4 MG/ML INJ IVP PRN (09:37)
[2019-11-26] MEDS ORDERED: D5% in Water 1,000 ML IVC PRN (09:39)
[2019-11-26] MEDS ORDERED: *HR* Dextrose 50 % in Water (Vial) 50 ML VIAL IVP PRN (09:39)
[2019-11-26] MEDS ORDERED: Dextrose Gel 15 GM/37.5 ML TUBE PO PRN ×2 (09:39)
[2019-11-26] MEDS ORDERED: Perflutren Lipid Microsphere 1.3 ML in 0.9 % Sodium Chloride 8.7 ML IVP PRN (10:13)
[2019-11-26] MEDS: Insulin LISPRO 300 UNITS/3 ML VIAL SQ SCH ×2 (12:32→16:52)
[2019-11-26 14:35] LABS: Prothrombin Time 11.9 Seconds (9.4-12.1)
[2019-11-26 14:47] LABS: Acetaminophen < 10 mcg/mL (10-20); Alanine Aminotransferase 59 Units/L (7-52); Albumin 4.4 g/dL (3.5-5.7); Albumin/Globulin Ratio 1.3 (1.1-2.2); Alkaline Phosphatase 59 Units/L (34-104); Aspartate Amino Transferase 36 Units/L (13-39); Bilirubin,Direct 0.1 mg/dL (0.0-0.2); Bilirubin,Indirect 0.3 mg/dL (0.0-1.0); Bilirubin,Total 0.4 mg/dL (0.3-1.0); Chol/HDL Ratio 3.5 (0-4.9); Cholesterol 106 mg/dL (< 200); Globulin 3.4 g/dL (2.4-3.5); HDL Cholesterol 30 mg/dL (40-59); LDL Cholesterol,Calculated 34 mg/dL (< 100); Magnesium 1.5 mg/dL (1.6-2.6); Phosphorous 3.6 mg/dL (2.7-4.5); Salicylate < 2.5 mg/dL (15.0-30.0); Total Protein 7.8 g/dL (6.4-8.9); Triglycerides 211 mg/dL (< 150); Troponin I < 0.03 ng/mL (< 0.04)
[2019-11-26 14:51] LABS: Thyroid Stimulating Hormone 1.217 mcIU/mL (0.340-5.600)
[2019-11-26] MEDS ORDERED: Famotidine 20 MG TABLET PO PRN (15:18)
[2019-11-26 16:16] LABS: Estimated Average Glucose 137 mg/dl
[2019-11-26] MEDS: *HR* Heparin 5,000 UNIT/ML VIAL SQ SCH ×2 (16:55→21:06)
[2019-11-26] MEDS: Lisinopril-HCTZ 20-12.5mg TABLET PO SCH (21:05)
[2019-11-26 22:09] LABS: Amphetamine Screen,Urine Negative ng/mL (Cutoff=1000); Barbiturate Screen,Urine Negative ng/mL (Cutoff=200); Benzodiazepines Screen,Urine Negative ng/mL (Cutoff=200); Cannabinoid Screen,Urine Negative ng/mL (Cutoff = 50); Cocaine Screen,Urine Negative ng/mL (Cutoff= 300); Opiate Screen,Urine Negative ng/mL (Cutoff=300); Phencyclidine Screen,Urine Negative ng/mL (Cutoff=25)
[2019-11-27 02:46] LABS: Basophils # 0.1 K/mcL (0.0-0.2); Basophils % 0.6 %; Eosinophils # 0.2 K/mcL (0.0-0.6); Eosinophils % 1.8 %; Hematocrit 42.4 % (37.5-50.1); Hemoglobin 14.1 g/dL (12.9-16.9); Immature Granulocytes % 0.2 % (0-4); Lymphocytes # 2.8 K/mcL (0.6-4.6); Lymphocytes % 27.6 %; Mean Corpuscular HGB Conc 33.3 g/dL (31.6-35.5); Mean Corpuscular Hemoglobin 32.6 pg (28.0-33.3); Mean Corpuscular Volume 98.1 fL (83.0-100.0); Mean Platelet Volume 9.8 fL (9.4-12.4); Monocytes # 0.8 K/mcL (0.0-1.3); Neutrophils # 6.2 K/mcL (1.6-8.9); Platelet Count 265 K/mcL (140-400); Red Blood Count 4.32 M/mcL (4.19-5.50); Red Cell Distribution Width 12.4 % (11.5-14.5); Segmented Neutrophils % 61.8 %
[2019-11-27 03:05] LABS: BUN/Creatinine Ratio 30 (6-26); Blood Urea Nitrogen 26 mg/dL (8-23); Carbon Dioxide 27 mEq/L (23-29); Chloride 104 mEq/L (98-107); Glucose 124 mg/dL (70-105); Osmolality,Calculated 292 (280-300); Potassium 4.5 mEq/L (3.5-5.1); Sodium 138 mEq/L (136-145); eGFR For African Americans > 60 (> 60); eGFR For Non-African Americans > 60 (> 60)
[2019-11-27 03:06] LABS: Calcium 9.6 mg/dL (8.6-10.3)
[2019-11-27] MEDS: *HR* Heparin 5,000 UNIT/ML VIAL SQ SCH ×3 (04:59→20:57)
[2019-11-27] MEDS: allopurinoL 100 MG TABLET PO SCH (08:49)
[2019-11-27] MEDS: Aspirin Enteric Coated 81 MG Tablet PO SCH (08:49)
[2019-11-27] MEDS: Insulin LISPRO 300 UNITS/3 ML VIAL SQ SCH ×3 (08:49→16:57)
[2019-11-27] MEDS: atenoloL 50 MG TABLET PO SCH (08:49)
[2019-11-27] MEDS: Lactobacillus 1 EACH CAP.SPRINK PO SCH (08:49)
[2019-11-27] MEDS: Lisinopril-HCTZ 20-12.5mg TABLET PO SCH ×2 (08:49→20:57)
[2019-11-27] MEDS ORDERED: Nicotine 21 MG PATCH.TD24 TD SCH (15:45)
[2019-11-27] MEDS ORDERED: Ibuprofen 800 MG TABLET PO ONE (18:30)
[2019-11-28] MEDS: *HR* Heparin 5,000 UNIT/ML VIAL SQ SCH (00:48)
[2019-11-28 09:10] VITALS: BP 144/75
[2019-11-28] MEDS: allopurinoL 100 MG TABLET PO SCH (09:16)
[2019-11-28] MEDS: Lactobacillus 1 EACH CAP.SPRINK PO SCH (09:16)
[2019-11-28] MEDS: Aspirin Enteric Coated 81 MG Tablet PO SCH (09:16)
[2019-11-28] MEDS: atenoloL 50 MG TABLET PO SCH (09:16)
[2019-11-28] MEDS: Lisinopril-HCTZ 20-12.5mg TABLET PO SCH (09:16)
== END 2019-11-28 09:55 | disposition home or self-care (01) ==
LOC: 3BNU 07:58 → EMEROOARM 07:58 → SUATTDRO 10:11 → 3BNU 11:14
PROVIDERS: ADMIT Student in an Organized Health Care Education/Training Program; ATTEND Internal Medicine